=== PATIENT | female | born 1935 | race Caucasian/White ===

== ENCOUNTER → 2016-07-08 | Outpatient (CLI) | payer OTHER, MEDICARE ==
--- NOTE | 2016-07-08 09:00 | DX ---
Chest, Two Views at 735 hours History: Shortness of breath. Comparison: October 20, 2006 Findings: Cardiac silhouette is within normal range. Atherosclerotic tortuous aorta. No pneumonia, co ngestive heart failure, pleural effusion, or pneumothorax. Impression: No acute pulmonary disease.
== END ==
LOC: FIMAGING 07:18 → EDSTATUS 11:35
PROVIDERS: ATTEND Internal Medicine
DX: R06.02 Shortness of breath (principal); E78.5 Hyperlipidemia, unspecified; R63.5 Abnormal weight gain

== ENCOUNTER → 2016-08-13 | Outpatient (CLI) | payer OTHER, MEDICARE | LOC: BHFA 09:15 | PROVIDERS: ATTEND Internal Medicine Cardiovascular Disease | DX: R06.02 Shortness of breath (principal); R00.0 Tachycardia, unspecified; E78.5 Hyperlipidemia, unspecified ==

== ENCOUNTER → 2016-08-20 | Outpatient (CLI) | payer OTHER, MEDICARE | LOC: BHFA 08:30 | PROVIDERS: ATTEND Internal Medicine Cardiovascular Disease | DX: R00.2 Palpitations (principal); R06.02 Shortness of breath | CPT/HCPCS: 78452; 93017; 93306; A9500; J2785 ==

== ENCOUNTER → 2016-08-29 | Outpatient (CLI) | payer OTHER, MEDICARE | LOC: BHFA 09:00 | PROVIDERS: ATTEND Internal Medicine Cardiovascular Disease | DX: I47.1 Supraventricular tachycardia (principal); E78.5 Hyperlipidemia, unspecified ==

== ENCOUNTER → 2017-10-14 | Outpatient (CLI) | payer OTHER, MEDICARE | LOC: BMCIMAGING 08:35 | PROVIDERS: ATTEND Physician Assistant | DX: M25.862 Other specified joint disorders, left knee (principal) ==

== ENCOUNTER → 2017-11-17 | Outpatient (CLI) | payer OTHER, MEDICARE | LOC: FIMAGING 11:02 | PROVIDERS: ATTEND Physician Assistant | DX: S83.232A Complex tear of medial meniscus, current injury, left knee, initial encounter (principal); M24.10 Other articular cartilage disorders, unspecified site; M25.462 Effusion, left knee; M25.562 Pain in left knee ==

== ENCOUNTER → 2017-11-26 | Outpatient (CLI) | payer OTHER, MEDICARE | LOC: BHFA 10:45 | PROVIDERS: ATTEND Physician Assistant | DX: I25.10 Atherosclerotic heart disease of native coronary artery without angina pectoris (principal) ==

== ENCOUNTER 2017-12-15 06:36 | Day surgery (SDC) | payer OTHER, MEDICARE ==
[2017-12-15] MEDS ORDERED: ceFAZolin 2 GM/SWFI 2 GM/20 ML SYR IVP ONE (07:04)
[2017-12-15] MEDS ORDERED: LR 1,000 ML IV SCH (07:04)
[2017-12-15] MEDS ORDERED: LIDOCAINE 1% 2 ML INJ ID PRN (07:05)
[2017-12-15] MEDS ORDERED: ceFAZolin 2 GM/DEXTROSE 100 ML IV ONE (07:15)
--- NOTE | 2017-12-15 07:51 | PDHPUP ---
History & Physical Update H&P update statement: This history and physical update is based on an assessment of the patient which was completed after admission or registration (within 24 hours), but prior to the surgery/procedure. H&P update: no change in patient's condition since H&P completed
[2017-12-15] MEDS ORDERED: EPINEPHrine 1 MG/ML INJ ONE (08:09)
[2017-12-15] MEDS ORDERED: BUPIVACAINE/EPI 0.5% 30 ML SDV ONE (08:09)
[2017-12-15] MEDS ORDERED: fentaNYL 100 MCG/2 ML INJ ONE ×2 (09:04→10:09)
[2017-12-15] MEDS ORDERED: PROPOFOL 200 MG/20 ML VIAL ONE ×2 (09:05→09:40)
--- NOTE | 2017-12-15 09:05 | PDANEPAE ---
ANE Past Medical History - Cardiovascular History Hx Arrhythmias: Yes Hx Coronary Artery / Peripheral Vascular Disease: Yes Cardiovascular History Comment: HYPERLIPIDEMIA. SVT - NO SXS X 4 MOS. AIVR. DVT FOLLOWING ANKLE INJURY 4 YRS AGO - Pulmonary History Hx COPD: No Hx Asthma/Reactive Airway Disease: No Hx Recent Upper Respiratory Infection: No Hx Oxygen in Use at Home: No Hx Sleep Apnea: No Sleep Apnea Screening Result - Last Documented: Negative - Neurologic History Hx Cerebrovascular Accident: No Hx Seizures: No Hx Dementia: No - Endocrine History Hx Diabetes: No - Renal History Hx Renal Disorders: No - Liver History Hx Hepatic Disorders: No - Neurological & Psychiatric Hx Hx Neurological and Psychiatric Disorders: No - Cancer History Hx Cancer: No - Congenital Disorder History Hx Congenital Disorders: No - GI History Hx Gastrointestinal Disorders: No Gastrointestinal History Comment: HIATAL HERNIA - Other Health History Other Health History: NEG - Chronic Pain History Chronic Pain: Yes (KNEE L) - Surgical History Prior Surgeries: OOPHERECTOMY. CATARACTS ANE Review of Systems Review of Systems: - Exercise capacity METS (RN): 4 METS ANE Patient History - Allergies Allergies/Adverse Reactions: No Known Drug Allergies Allergy (Verified 12/09/17 12:03) - Home Medications Home Medications: Herbals/Supplements -Info Only 12/11/17 [Last Taken 12/10/17] Metoprolol Succinate 12/11/17 [Last Taken 12/15/17] - NPO status NPO Since - Liquids (Date): 12/15/17 NPO Since - Liquids (Time): 05:00 NPO Since - Solids (Date): 12/14/17 NPO Since - Solids (Time): 19:30 - Smoking Hx Smoking Status: Never smoked ANE Labs/Vital Signs - Vital Signs Blood Pressure: 144/68 Heart Rate: 76 Respiratory Rate: 14 O2 Sat (%): 97 Height: 168.91 cm Weight: 73.482 kg ANE Physical Exam - Airway Neck exam: FROM Mallampati Score: Class 2 Mouth exam: normal dental/mouth exam - Pulmonary Pulmonary: no respiratory distress, no rales or rhonchi, clear to auscultation - Cardiovascular Cardiovascular: regular rate and rhythym, no murmur, rub, or gallop - ASA Status ASA Status: III ANE Anesthesia Plan Anesthesia Plan: MAC
[2017-12-15] MEDS ORDERED: LIDOCAINE 2% 5 ML SDV ONE (09:09)
[2017-12-15] MEDS ORDERED: RANITIDINE 50 MG/2 ML VIAL ONE (09:28)
[2017-12-15] MEDS ORDERED: ONDANSETRON 4 MG/2 ML VIAL ONE (09:28)
[2017-12-15] MEDS ORDERED: ONDANSETRON 4 MG/2 ML VIAL IVP PRN (09:29)
[2017-12-15] MEDS ORDERED: ACETAMINOPHEN 500 MG TAB PO PRN (09:29)
[2017-12-15] MEDS ORDERED: HYDROCODONE/APAP 5/325 TAB PO PRN (09:29)
[2017-12-15] MEDS ORDERED: ALBUTEROL 3 ML DEYVIAL IH PRN (09:29)
[2017-12-15] MEDS ORDERED: NALOXONE HCL 0.4 MG/ML INJ IVP PRN (09:29)
[2017-12-15] MEDS ORDERED: LR 500 ML IV PRN (09:29)
[2017-12-15] MEDS: fentaNYL 100 MCG/2 ML INJ IVP PRN ×2 (10:10→10:15)
--- NOTE | 2017-12-15 10:54 | POSTANESTH ---
Post Anesthetic Evaluation Cardiovascular Status: Normal, Stable, Similar to Pre-Op Cond Respiratory Status: Normal, Stable, Similar to Pre-op Cond. Level of Consciousness/Mental Status: Mildly Sleepy, Arousable Pain Control: Adequate, Prn Tx Ordered Nausea/Vomiting Control: Adequate, Prn Tx Ordered Complications Possibly Related to Anesthesia: None Noted
[2017-12-15 11:52] VITALS: BP 121/73
--- NOTE | 2017-12-16 15:18 | GOP ---
[f rep st] OPERATIVE REPORT DATE OF OPERATION: 12/15/2017 SURGEON: Philippe Rivera MD NIB INSPECTOR: None. PREOPERATIVE DIAGNOSIS: Left knee medial and lateral meniscus tears. POSTOPERATIVE DIAGNOSIS: PROCEDURE PERFORMED: Left knee arthroscopy, partial medial and partial lateral meniscectomies. FINDINGS: SPECIMENS: None. INDICATIONS: The patient is an 82-year-old woman with persistent catching pain and discomfort across her left knee. Clinical and radiographic features are consistent with meniscus damage as above. I have recommended operative intervention for partial medial and partial lateral meniscectomies and mil d chondroplasty. DESCRIPTION OF PROCEDURE: The patient was identified in the preanesthesia area. The left knee clear ly demarcated as the operative site with indelible marker. She was given 2 g of Ancef intravenously en route to the operative suite. In the OR, general endotracheal anesthesia was administered. Atten tion was turned to the left knee, which was sterilely prepped and draped in usual fashion. Appropria te time-out procedure was carried out. The limb was sterilely prepped and draped. Arthroscopic portal sites were created across the superomedial, inferomedial, inferolateral aspect of the knee. Diagnostic arthroscopy ensued. The suprapatellar pouch was devoid of any loose or foreig n debris. The synovium was moderately inflamed. The articular surface of the patella and trochlea d emonstrated grade 2 chondromalacia and gentle debridement was carried out. Medial lateral gutters we re free of any loose or foreign debris. The medial compartment was entered. There was a complex tear through the middle and posterior third with displacement of the fragment into the lateral recess. This was debrided with arthroscopic shave r and trimmed to a stable margin. Approximately 40% of the middle third of the meniscus was withdraw n and 30% of the posterior third. The intercondylar notch was entered. The ACL was stable, intact t o gentle probing. The lateral compartment demonstrated a radial tear and degenerative horizontal tear through the inner margin. This was debrided with arthroscopic shaver. Approximately 20% to 30% of the inner to outer diameter was withdrawn through the middle third to posterior third junction. The articular surfaces were gently debrided with arthroscopic shaver to a clean and stable edge. All loose particulate christopher ris was evacuated. The arthroscopic equipment was withdrawn and the portal sites closed using 4-0 nylon suture. The kne e instilled with 20 cc of 0.5% Marcaine with epinephrine. A sterile dressing applied. The patient w as awakened, extubated, and taken to recovery room in good stable condition. PREOPERATIVE DIAGNOSIS: Left knee medial and lateral meniscus tears. TOTAL TOURNIQUET TIME: None. COMPLICATIONS: None. DISPOSITION: To recovery room, then home. /[id number]/MODL
== END 2017-12-15 11:54 | disposition home or self-care (01) ==
LOC: FSGY 06:36
PROVIDERS: ATTEND Orthopaedic Surgery
PROC: 0SBD4ZZ Excision of Left Knee Joint, Percutaneous Endoscopic Approach (ICD-10-PCS; principal; 2017-12-15 08:30)
DX: M23.222 Derangement of posterior horn of medial meniscus due to old tear or injury, left knee (principal); M23.362 Other meniscus derangements, other lateral meniscus, left knee; E78.5 Hyperlipidemia, unspecified; I47.1 Supraventricular tachycardia; Z86.718 Personal history of other venous thrombosis and embolism; K44.9 Diaphragmatic hernia without obstruction or gangrene
CPT/HCPCS: J0171; J0690; J2405; J2704; J2780; J3010

== ENCOUNTER → 2018-04-17 | Outpatient (CLI) | payer OTHER, MEDICARE | LOC: FIMAGING 08:06 | PROVIDERS: ATTEND Physician Assistant | DX: M23.021 Cystic meniscus, posterior horn of medial meniscus, right knee (principal); M23.041 Cystic meniscus, anterior horn of lateral meniscus, right knee; M25.461 Effusion, right knee ==

== ENCOUNTER 2018-04-26 11:55 | Day surgery (SDC) | payer OTHER, MEDICARE ==
[2018-04-26] MEDS ORDERED: LR 1,000 ML IV SCH (12:10)
[2018-04-26] MEDS ORDERED: ceFAZolin 2 GM/DEXTROSE 100 ML IV ONE (12:10)
[2018-04-26] MEDS ORDERED: LR 1,000 ML IV ONE (12:12)
[2018-04-26] MEDS ORDERED: LIDOCAINE 1% 2 ML INJ ID PRN (12:12)
[2018-04-26] MEDS ORDERED: BUPIVACAINE/EPI 0.5% 30 ML SDV ONE (14:18)
[2018-04-26] MEDS ORDERED: EPINEPHrine 1 MG/ML INJ ONE (14:18)
[2018-04-26] MEDS ORDERED: ONDANSETRON 4 MG/2 ML VIAL ONE (14:32)
[2018-04-26] MEDS ORDERED: PROPOFOL 200 MG/20 ML VIAL ONE (14:32)
[2018-04-26] MEDS ORDERED: fentaNYL 100 MCG/2 ML INJ ONE (14:32)
[2018-04-26] MEDS ORDERED: LIDOCAINE 2% 5 ML SDV ONE (14:32)
[2018-04-26] MEDS ORDERED: DEXAMETHASONE 4 MG/ML VIAL ONE (14:32)
[2018-04-26] MEDS ORDERED: KETOROLAC 30 MG/1 ML SDV ONE (14:32)
--- NOTE | 2018-04-26 15:16 | PDANEPAE ---
ANE History of Present Illness knee scope ANE Past Medical History - Cardiovascular History Hx Hypertension: No Hx Arrhythmias: Yes Hx Chest Pain: No Hx Coronary Artery / Peripheral Vascular Disease: No Hx CHF / Valvular Disease: No Hx Palpitations: No Cardiovascular History Comment: HYPERLIPIDEMIA. SVT - NO SXS X 4 MOS. AIVR. DVT FOLLOWING ANKLE INJURY 4 YRS AGO - Pulmonary History Hx COPD: No Hx Asthma/Reactive Airway Disease: No Hx Recent Upper Respiratory Infection: No Hx Oxygen in Use at Home: No Hx Sleep Apnea: No Sleep Apnea Screening Result - Last Documented: Negative - Neurologic History Hx Cerebrovascular Accident: No Hx Seizures: No Hx Dementia: No - Endocrine History Hx Diabetes: No - Renal History Hx Renal Disorders: No - Liver History Hx Hepatic Disorders: No - Neurological & Psychiatric Hx Hx Neurological and Psychiatric Disorders: No - Cancer History Hx Cancer: No - Congenital Disorder History Hx Congenital Disorders: No - GI History Hx Gastrointestinal Disorders: No Gastrointestinal History Comment: HIATAL HERNIA - Other Health History Other Health History: NEG - Chronic Pain History Chronic Pain: Yes (R KNEE) - Surgical History Prior Surgeries: OOPHERECTOMY. CATARACTS ANE Review of Systems Review of Systems: - Exercise capacity METS (RN): 4 METS ANE Patient History - Allergies Allergies/Adverse Reactions: No Known Drug Allergies Allergy (Verified 12/09/17 12:03) - Home Medications Home Medications: Herbals/Supplements -Info Only 12/11/17 [Last Taken 03/26/18] Metoprolol Succinate 12/11/17 [Last Taken 04/25/18 16:30] - NPO status NPO Status: no food or drink >8 hours NPO Since - Liquids (Date): 04/25/18 NPO Since - Liquids (Time): 08:30 NPO Since - Solids (Date): 04/25/18 NPO Since - Solids (Time): 18:30 - Anes Hx Anes Hx: no prior problems - Smoking Hx Smoking Status: Never smoked ANE Labs/Vital Signs - Vital Signs Blood Pressure: 149/75 Heart Rate: 44 Respiratory Rate: 16 O2 Sat (%): 96 Height: 168.91 cm Weight: 73.936 kg ANE Physical Exam - Airway Mallampati Score: Class 2 - Pulmonary Pulmonary: no respiratory distress - Cardiovascular Cardiovascular: regular rate and rhythym - ASA Status ASA Status: II ANE Anesthesia Plan Anesthesia Plan: GA w LMA
[2018-04-26] MEDS ORDERED: fentaNYL 100 MCG/2 ML INJ IVP PRN (15:29)
[2018-04-26] MEDS ORDERED: ALBUTEROL 3 ML DEYVIAL IH PRN (15:29)
[2018-04-26] MEDS ORDERED: LR 500 ML IV PRN (15:29)
[2018-04-26] MEDS ORDERED: NALOXONE HCL 0.4 MG/ML INJ IVP PRN (15:29)
[2018-04-26] MEDS ORDERED: ONDANSETRON 4 MG/2 ML VIAL IVP PRN (15:29)
--- NOTE | 2018-04-26 15:52 | POSTANESTH ---
Post Anesthetic Evaluation Cardiovascular Status: Normal, Stable Respiratory Status: Normal, Stable Level of Consciousness/Mental Status: Can Participate in Eval Pain Control: Adequate, Prn Tx Ordered Nausea/Vomiting Control: Adequate, Prn Tx Ordered Complications Possibly Related to Anesthesia: None Noted
--- NOTE | 2018-04-26 15:57 | POSTOPPROG ---
Post Op Note Date of Operation: 04/26/18 Surgeon: Philippe Rivera Desk Assistant: none Anesthesiologist: puar Anesthesia: GET(General Endotracheal) Pre-op Diagnosis: med lat meniscus tears right knee Post-op Diagnosis: same Indication: same Procedure: partial med lat menisectomy right knee Inf/Abcess present in the surg proc area at time of surgery?: No Depth: Deep Incisional (Fascial) EBL: Minimal
[2018-04-26 17:15] VITALS: BP 127/58
--- NOTE | 2018-04-28 23:06 | CPEKG ---
Test Reason : OPEN Blood Pressure : / mmHG Vent. Rate : 104 BPM Atrial Rate : 041 BPM P-R Int : 182 ms QRS Dur : 080 ms QT Int : 398 ms P-R-T Axes : 076 022 065 degrees QTc Int : 524 ms Sinus tachycardia Ventricular bigeminy Probable left atrial enlargement Confirmed by Edy Alcazar ([id number]) on 04/28/2018 11:06:01 PM Referred By: Confirmed By:Edy Alcazar
--- NOTE | 2018-05-02 13:21 | GOP ---
DATE OF OPERATION: 04/26/2018 SURGEON: Philippe Rivera MD MH TEACHER: Dom Conn, rn medical surgical who was a medical necessity for the entirety of the case. PREOPERATIVE DIAGNOSIS: Right knee medial and lateral meniscus tears, as well as chondromalacia. POSTOPERATIVE DIAGNOSIS: Right knee medial and lateral meniscus tears, as well as chondromalacia. PROCEDURE PERFORMED: Right knee arthroscopy with partial medial, partial lateral meniscectomy, media l femoral chondroplasty. FINDINGS: INDICATIONS: This is an 83-year-old woman with moderate arthritic change. She has focal mechanical symptoms given a large tear through her medial meniscus and medial femoral condylar defect. She has undergone previous left knee arthroscopy for similar findings and has done very well. I, therefore, recommended a right knee arthroscopy. She understood the risks, benefits, alternatives, and wished t o proceed. Written consent was signed and placed in patient's chart. DESCRIPTION OF PROCEDURE: The patient was identified in the preanesthesia area. The right knee tanvir rly demarcated as operative site with an indelible marker. She was taken to the operating room. Gen eral endotracheal anesthesia was administered. Attention was turned to the right knee, which was dedra rilely prepped and draped in usual fashion. Appropriate time-out procedure was carried out. Standard arthroscopic portal sites were created. Diagnostic arthroscopy ensued. The suprapatellar p ouch was devoid of any loose or foreign debris. The synovium was moderately inflamed and the articul ar surface of the femur in the trochlea and the patella in the 1 and 2 softening only. The medial ad lateral gutters were free of any loose or foreign debris. The medial compartment was entered. There was a grade III condylar defect that was irregular approxi mately 1.5 cm to 2 cm, the margins of which were debrided with abrasion chondroplasty to avoid catchi ng and/or prominence. The tibia demonstrated grade 1 softening. There was any gross macerated tear of the medial meniscus with extrusion of the medial fragment into an intra-articular position. This was debrided to a clean and stable edge. Approximately 50% of the middle and posterior thirds were d ebrided. The intercondylar notch was entered. The ACL was stable, intact to gentle probing. The lateral comp artment was entered. The articular surface of the femur and tibia demonstrated grade I articular car tilage wear. The lateral meniscus was frayed and had a degenerative tear through the midportion. Th is was debrided with the arthroscopic shaver, approximately 30% of the inner outer diameter was debri ded in this area. The arthroscopic equipment was withdrawn. The portal sites closed using 4-0 nylon suture. The knee instilled with 20 cc of 0.5% Marcaine with epinephrine. A sterile dressing was applied. The patient was awakened, extubated, and taken to recovery room in good, stable condition. /[id number]/MODL
== END 2018-04-26 17:37 | disposition home or self-care (01) ==
LOC: FSGY 11:55
PROVIDERS: ATTEND Orthopaedic Surgery
PROC: 0SBC4ZZ Excision of Right Knee Joint, Percutaneous Endoscopic Approach (ICD-10-PCS; principal; 2018-04-26 14:45)
DX: S83.241A Other tear of medial meniscus, current injury, right knee, initial encounter (principal); M23.261 Derangement of other lateral meniscus due to old tear or injury, right knee
CPT/HCPCS: J0171; J0690; J1100; J1885; J2405; J2704; J3010

== ENCOUNTER → 2018-07-19 | Outpatient (CLI) | payer OTHER, MEDICARE | LOC: FIMAGING 07:33 | PROVIDERS: ATTEND Neurological Surgery | DX: M51.36 Other intervertebral disc degeneration, lumbar region (principal); M41.86 Other forms of scoliosis, lumbar region; M53.3 Sacrococcygeal disorders, not elsewhere classified ==

== ENCOUNTER → 2018-07-26 | Outpatient (CLI) | payer OTHER, MEDICARE ==
[~2018-07-26] MED LIST: GADOBUTROL 10 ML VIAL IVP ONE
== END ==
LOC: FIMAGING 06:22
PROVIDERS: ATTEND Neurological Surgery
DX: M48.061 Spinal stenosis, lumbar region without neurogenic claudication (principal); M51.36 Other intervertebral disc degeneration, lumbar region; M46.96 Unspecified inflammatory spondylopathy, lumbar region; M51.24 Other intervertebral disc displacement, thoracic region
CPT/HCPCS: 72158; A9585; 82565-PO

== ENCOUNTER 2018-08-04 07:30 | Observation (INO) | payer OTHER, MEDICARE ==
--- NOTE | 2018-08-04 06:22 | PDHPUP ---
History & Physical Update H&P update statement: This history and physical update is based on an assessment of the patient which was completed after admission or registration (within 24 hours), but prior to the surgery/procedure. H&P update: H&P reviewed & patient examined, no change in patient's condition since H&P completed
[2018-08-04] MEDS ORDERED: EPINEPHrine 1 MG/ML INJ ONE (07:40)
[2018-08-04] MEDS ORDERED: BUPIVACAINE 0.25% 30 ML SDV ONE (07:40)
[2018-08-04] MEDS ORDERED: THROMBIN (BOVINE) 5,000 UNIT VIAL TP ONE (07:40)
[2018-08-04] MEDS ORDERED: DEPO METHYLPREDNISOLONE 40 MG/ML SDV ONE (07:40)
[2018-08-04] MEDS ORDERED: CHLORHEXIDINE GLUC HIBICLENS 118 ML BTL TP ONE (07:40)
[2018-08-04] MEDS ORDERED: BACITRACIN 50,000 UNITS/10 ML SYR IRR ONE (07:41)
[2018-08-04] MEDS ORDERED: LR 1,000 ML IV ONE (07:48)
[2018-08-04] MEDS ORDERED: ACETAMINOPHEN 500 MG TAB PO ONE (07:48)
[2018-08-04] MEDS ORDERED: ceFAZolin 2 GM/DEXTROSE 100 ML IV ONE (07:48)
[2018-08-04] MEDS ORDERED: GABAPENTIN 300 MG CAP PO ONE (07:48)
--- NOTE | 2018-08-04 08:45 | PDANEPAE ---
ANE History of Present Illness 83 yo female with severe L leg pain for L4/5 laminectomy. ANE Past Medical History - Cardiovascular History Hx Hypertension: No Hx Arrhythmias: Yes Hx Chest Pain: No Hx Coronary Artery / Peripheral Vascular Disease: No Hx CHF / Valvular Disease: No Hx Palpitations: No Cardiovascular History Comment: HYPERLIPIDEMIA. SVT - NO SXS X 4 MOS. AIVR. DVT FOLLOWING ANKLE INJURY 4 YRS AGO - Pulmonary History Hx COPD: No Hx Asthma/Reactive Airway Disease: No Hx Recent Upper Respiratory Infection: No Hx Oxygen in Use at Home: No Hx Sleep Apnea: No Sleep Apnea Screening Result - Last Documented: Negative - Neurologic History Hx Cerebrovascular Accident: No Hx Seizures: No Hx Dementia: No - Endocrine History Hx Diabetes: No Hypothyroid: No Hyperthyroid: No Obesity: no - Renal History Hx Renal Disorders: No - Liver History Hx Hepatic Disorders: No - Neurological & Psychiatric Hx Hx Neurological and Psychiatric Disorders: No Neurological / Psychiatric History Comment: n/t to legs,aching - Cancer History Hx Cancer: No - Congenital Disorder History Hx Congenital Disorders: No - GI History Hx Gastrointestinal Disorders: No Gastrointestinal History Comment: HIATAL HERNIA - Other Health History Other Health History: NEG - Chronic Pain History Chronic Pain: Yes (R KNEE) - Surgical History Prior Surgeries: OOPHERECTOMY. CATARACTS ANE Review of Systems Review of Systems: - Exercise capacity METS (RN): 4 METS ANE Patient History - Allergies Allergies/Adverse Reactions: No Known Drug Allergies Allergy (Verified 07/29/18 11:24) - Home Medications Home Medications: Metoprolol Tartrate 07/29/18 [Last Taken 08/03/18] - NPO status NPO Since - Liquids (Date): 08/04/18 NPO Since - Liquids (Time): 05:00 NPO Since - Solids (Date): 08/03/18 NPO Since - Solids (Time): 21:00 - Smoking Hx Smoking Status: Never smoked - Family Anes Hx Family Hx Anesthesia Complications: none ANE Labs/Vital Signs - Vital Signs Blood Pressure: 136/62 Heart Rate: 88 Respiratory Rate: 20 O2 Sat (%): 95 Height: 170.18 cm Weight: 70.76 kg ANE Physical Exam - ASA Status ASA Status: II ANE Anesthesia Plan Anesthesia Plan: general endotracheal anesthesia
[2018-08-04] MEDS ORDERED: MAGNESIUM HYDROXIDE 30 ML UDCUP PO PRN (09:53)
[2018-08-04] MEDS ORDERED: METHOCARBAMOL 750 MG TAB PO PRN (09:53)
[2018-08-04] MEDS ORDERED: HYDROmorphONE/DILAUDID 1 MG/ML INJ IVP PRN (09:53)
[2018-08-04] MEDS ORDERED: POLYETHYLENE GLYCOL 3350 17 GM PKT PO PRN (09:53)
[2018-08-04] MEDS ORDERED: BISACODYL 10 MG SUPP PR PRN (09:53)
[2018-08-04] MEDS ORDERED: LACTULOSE 20 GM/30 ML UDCUP PO PRN (09:53)
[2018-08-04] MEDS ORDERED: diphenhydrAMINE 25 MG CAP PO PRN (09:53)
[2018-08-04] MEDS ORDERED: ONDANSETRON DISINTEGRATING 4 MG TAB PO PRN (09:53)
[2018-08-04] MEDS ORDERED: oxyCODONE IR 5 MG TAB PO PRN (09:53)
[2018-08-04] MEDS ORDERED: ONDANSETRON 4 MG/2 ML VIAL IVP PRN (09:53)
[2018-08-04] MEDS ORDERED: NS 1,000 ML IV SCH (10:00)
--- NOTE | 2018-08-04 10:34 | PDANEPAE ---
ANE History of Present Illness here for chronic knee and back pain, lumbar lami scheduled L4-L5 ANE Past Medical History - Cardiovascular History Hx Hypertension: No Hx Arrhythmias: Yes Hx Chest Pain: No Hx Coronary Artery / Peripheral Vascular Disease: No Hx CHF / Valvular Disease: No Hx Palpitations: No Cardiovascular History Comment: HYPERLIPIDEMIA. SVT - NO SXS X 4 MOS. AIVR ( accelerated idioventricular rhythm). DVT FOLLOWING ANKLE INJURY 4 YRS AGO - Pulmonary History Hx COPD: No Hx Asthma/Reactive Airway Disease: No Hx Recent Upper Respiratory Infection: No Hx Oxygen in Use at Home: No Hx Sleep Apnea: No Sleep Apnea Screening Result - Last Documented: Negative - Neurologic History Hx Cerebrovascular Accident: No Hx Seizures: No Hx Dementia: No - Endocrine History Hx Diabetes: No Hypothyroid: No Hyperthyroid: No Obesity: no - Renal History Hx Renal Disorders: No - Liver History Hx Hepatic Disorders: No - Neurological & Psychiatric Hx Hx Neurological and Psychiatric Disorders: No Neurological / Psychiatric History Comment: n/t to legs,aching - Cancer History Hx Cancer: No - Congenital Disorder History Hx Congenital Disorders: No - GI History Hx Gastrointestinal Disorders: No Gastrointestinal History Comment: HIATAL HERNIA - Other Health History Other Health History: NEG - Chronic Pain History Chronic Pain: Yes (R KNEE) - Surgical History Prior Surgeries: OOPHERECTOMY. CATARACTS ANE Review of Systems Review of Systems: - Exercise capacity METS (RN): 4 METS ANE Patient History - Allergies Allergies/Adverse Reactions: No Known Drug Allergies Allergy (Verified 07/29/18 11:24) - Home Medications Home Medications: Metoprolol Tartrate 07/29/18 [Last Taken 08/03/18] - NPO status NPO Since - Liquids (Date): 08/04/18 NPO Since - Liquids (Time): 05:00 NPO Since - Solids (Date): 08/03/18 NPO Since - Solids (Time): 21:00 - Smoking Hx Smoking Status: Never smoked - Family Anes Hx Family Hx Anesthesia Complications: none ANE Labs/Vital Signs - Vital Signs Blood Pressure: 136/62 Heart Rate: 88 Respiratory Rate: 20 O2 Sat (%): 95 Height: 170.18 cm Weight: 70.76 kg ANE Physical Exam - Airway Neck exam: FROM Mallampati Score: Class 2 Mouth exam: normal dental/mouth exam - Pulmonary Pulmonary: no respiratory distress, no rales or rhonchi - Cardiovascular Cardiovascular: regular rate and rhythym, no murmur, rub, or gallop - ASA Status ASA Status: II ANE Anesthesia Plan Anesthesia Plan: general endotracheal anesthesia
[2018-08-04] MEDS ORDERED: PROPOFOL/EMULSION 500 MG/50 ML BOTTLE IV ONE (10:38)
[2018-08-04] MEDS ORDERED: REMIFENTANIL HCL 1 MG VIAL ONE (10:38)
[2018-08-04] MEDS ORDERED: PROPOFOL 200 MG/20 ML VIAL ONE ×2 (10:38→11:50)
[2018-08-04] MEDS ORDERED: ROCURONIUM 50 MG/5 ML VIAL ONE (10:38)
[2018-08-04] MEDS ORDERED: LIDOCAINE 2% 100 MG/5 ML SYR ONE (10:38)
[2018-08-04] MEDS ORDERED: DEXAMETHASONE 4 MG/ML VIAL ONE ×2 (11:00→11:04)
[2018-08-04] MEDS ORDERED: PHENYLEPHRINE 10 MG/ML SDV ONE ×2 (11:10)
[2018-08-04] MEDS ORDERED: ONDANSETRON 4 MG/2 ML VIAL ONE (12:11)
[2018-08-04] MEDS ORDERED: HYDROmorphONE/DILAUDID 2 MG/ML INJ ONE (12:32)
[2018-08-04] MEDS ORDERED: HYDROmorphONE/DILAUDID 2 MG/ML INJ IVP PRN (12:47)
[2018-08-04] MEDS ORDERED: LR 500 ML IV PRN (12:47)
[2018-08-04] MEDS ORDERED: DIAZEPAM 5 MG/ML 1 ML SYR IVP PRN (12:47)
[2018-08-04] MEDS ORDERED: NALOXONE HCL 0.4 MG/ML INJ IVP PRN (12:47)
[2018-08-04] MEDS ORDERED: MEPERIDINE 25 MG/0.5 ML AMP IVP PRN (12:47)
[2018-08-04] MEDS ORDERED: fentaNYL 100 MCG/2 ML INJ IVP PRN (12:47)
--- NOTE | 2018-08-04 12:48 | POSTANESTH ---
Post Anesthetic Evaluation Cardiovascular Status: Normal, Stable Respiratory Status: Normal, Stable Level of Consciousness/Mental Status: Can Participate in Eval, Mildly Sleepy, Arousable Pain Control: Adequate, Prn Tx Ordered Nausea/Vomiting Control: Adequate, Prn Tx Ordered Complications Possibly Related to Anesthesia: None Noted
--- NOTE | 2018-08-04 13:03 | POSTOPPROG ---
Post Op Note Date of Operation: 08/04/18 Surgeon: Sarah Rehman Network Operations Lead: BERNY Ojeda Anesthesiologist: DO Akosua Anesthesia: GET(General Endotracheal), Local (Specify) Pre-op Diagnosis: L4/5 stenosis Post-op Diagnosis: L4/5 stenosis Indication: LE pain Procedure: L4/5 laminectomy Findings: see op report Inf/Abcess present in the surg proc area at time of surgery?: No Depth: Deep Incisional (Fascial) EBL: 50-100 Total fluids administered: see anesthesia record Complications: none
--- NOTE | 2018-08-04 13:05 | SOAPPROG ---
SOAP Progress Note Assessment/Plan: Post Op Visit: S: Awake and alert. NAD. Pt with lower back pain O: AFVSS/PERRLA/EOMI no droop CN 2-12 grossly intact +lt touch 5/5 BUE/BLE = CDI A/P 83 yo female that is s/p L4/5 laminectomy -orders in place -call with any questions or concerns -PT/OT in am -take medications as directed -no bending or twisting Objective: Vital Signs Temp Pulse Resp BP Pulse Ox 36.0 C 71 16 118/55 L 99 08/04/18 12:45 08/04/18 12:45 08/04/18 12:45 08/04/18 12:47 08/04/18 12:47 08/03/18 08/04/18 08/05/18 05:59 05:59 05:59 Intake Total 600 Output Total 10 Balance 590 ICD10 Worksheet Patient Problems: Problems Problem Status Onset Lumbar radicular pain Acute Lumbar stenosis Acute - ICD10 Problem Qualifiers (1) Lumbar stenosis (2) Lumbar radicular pain
[2018-08-04] MEDS ORDERED: fentaNYL 100 MCG/2 ML INJ ONE (13:21)
--- NOTE | 2018-08-04 13:30 | GOP ---
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 PROCEDURE PERFORMED: L4-5 laminectomy with bilateral decompressions and bilateral recess decompressi ons ([id number]), microscope. FINDINGS: ESTIMATED BLOOD LOSS: 25 cc. INDICATIONS: The patient is an 83-year-old who had severe bilateral lumbosacral radiculopathy, neuro genic claudication, critical stenosis at L4-5. There was significant stenosis at L3-4 as well, but I did not think this is causing any of her symptoms, and I suggested a single-level lumbar laminectomy at L4, 5. The risks of nerve injury, spinal fluid leak, continued symptoms was discussed. She knew that there was a chance of infection and also a possibility that she would fail to improve from the surgery, but I thought there was a high probability of success. She did want to proceed. DESCRIPTION OF PROCEDURE: The patient was taken to the operating room, placed in a supine position. General anesthesia was begun. She was flipped prone onto the Eduardo frame. Care was taken to pad a ll points of contact. Her back was sterilely prepped and draped in usual sterile surgical fashion. A localizing x-ray was taken. A midline incision was made about 2 inches in length. The subcutaneous tissue was dissected using Raffy vie cautery down to the fascia and a subperiosteal dissection was made down the L4-5 lamina. Self-re taining retractor was placed. We removed the inferior spinous process of L4, the rostral part of the spinous process of L5. We then drilled bilateral laminectomies of L4, preserving the rostral arch o f L4, and then, we thinned down the rostral arch of L5. We then, under the operating microscope, ope karina the ligamentum flavum and decompressed from the mid pedicle of L5 to the inferior pedicle of L4. There was a very severe spinal stenosis. Her dura was very patulous. It was exuberant dura and ten ded to bulge through the lamina defect and is quite thin. There was no violation of the dura whatsoe henna. We decompressed from pedicle to pedicle at L5 and worked our way up along the L5 nerve root to the L4 pedicle and got great lateral recess decompressions. The right side was worse than the left a nd the right lateral recess was deeper than left lateral recess, but I was very happy with our decomp ression. We irrigated with antibiotic saline solution. Closed incision in multiple layers using Vicryl suture s. Steri-Strips were applied to the skin. The patient was reversed from anesthesia, extubated, and transferred to recovery room in stable condition. There were no complications. COMPLICATIONS: None. /[id number]/MODL
[2018-08-04] MEDS: ACETAMINOPHEN 500 MG TAB PO SCH ×2 (14:41→22:20)
[2018-08-04] MEDS: ceFAZolin 2 GM/DEXTROSE 100 ML IV SCH (16:34)
[2018-08-04] MEDS: FAMOTIDINE 20 MG TAB PO SCH (22:20)
[2018-08-04] MEDS: SENNOSIDES/DOCUSATE SODIUM TAB PO SCH (22:20)
[2018-08-05] MEDS: ceFAZolin 2 GM/DEXTROSE 100 ML IV SCH (00:51)
[2018-08-05] MEDS: ACETAMINOPHEN 500 MG TAB PO SCH (06:20)
[2018-08-05] MEDS: SENNOSIDES/DOCUSATE SODIUM TAB PO SCH (07:15)
[2018-08-05] MEDS: FAMOTIDINE 20 MG TAB PO SCH (07:16)
--- NOTE | 2018-08-05 07:31 | NEUSURGPN ---
Assessment/Plan: Assessment: 83 yo female that is s/p L4/5 laminectomy POD #1 Plan: -PT/OT this am -plan for dc later today -pt is doing well with minimal pain/complaints -orders in place -call with any questions or concerns -take medications as directed -no bending or twisting -pt seen by Dr Rehman -pt understands and agrees Subjective: Awake and alert. Pt with minimal lower back pain. No hdez/neck/chest/abd or gu complaints. No f/c/n/v/d. Objective: AFVSS/PERRLA/EOMI no droop CN 2-12 grossly intact +lt touch 5/5 BUE/BLE = CDI Neuro Check Frequency: per routine Urinary Catheter in Place: No - Physician Discussed Patient with : Ori Patient Seen by : Ori Neurosurgery Physical Exam - Vitals, I&O, Labs I and O 08/04/18 08/05/18 08/06/18 05:59 05:59 05:59 Intake Total 3770 Output Total 2310 Balance 1460 Weight 70.76 kg Intake: Oral (ml) 1640 IV Intake (ml) 600 IV Infused (ml) 1530 Ns 1,000 ml @ 75 mls/hr 1325 IV CONT ROSAMARIA Rx#: [id number] ceFAZolin 2 GM/DEXTROSE 205 100 ml @ 200 mls/hr IV Q8H ROSAMARIA Rx#:[id number] Output: Urine (ml) 2300 Bedside Commode 1300 Toilet 1000 Estimated Blood Loss (ml) 10 Other: Intake Quantity Yes Sufficient Number of Voids Bedside Commode 1 Toilet 1 Vital Signs Temp Pulse Resp BP Pulse Ox 36.6 C 61 16 120/60 95 08/05/18 07:14 08/05/18 07:14 08/05/18 07:14 08/05/18 07:14 08/05/18 07:14 ICD10 Worksheet Patient Problems: Problems Problem Status Onset Lumbar radicular pain Acute Lumbar stenosis Acute - ICD10 Problem Qualifiers (1) Lumbar stenosis (2) Lumbar radicular pain
[2018-08-05] MEDS ORDERED: ACETAMINOPHEN 325 MG TAB PO PRN (07:32)
[2018-08-05 08:51] LABS: PLATELET COUNT 184 10^3/uL (150-400)
--- NOTE | 2018-08-05 09:08 | GCON ---
[f rep st] CONSULTATION DATE OF CONSULTATION: 08/05/2018 REASON FOR CONSULTATION: I was asked to see this patient in regard to bradycardia noted this morning. HISTORY OF PRESENT ILLNESS: This is an 83-year-old relatively healthy female who is now postoperative day 1 status post L4-L5 laminectomy. Neurosurgery was planning on discharging her today; however, she was noted to be bradycardic. I spoke with her nurse Janny who notes this was noted when she was in bed this morning, completely lucid, somewhat asymptomatic. Her heart rate was 39 at the time. She said that she was not in pain at that time. She had no urge to have a bowel movement. No urge to urinate. She has never fainted in her life. She does not get any chest pain with ambulation nor shortness of breath. She occasionally gets some lower extremity edema in the summer. Her functional status has not changed. [place]. She has seen Cardiology in the past. 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 She also had an MPI that showed some inferoseptal ischemia. Angiogram was recommended at that time. However, she declined due to concern of stroke. She apparently had some bradycardia intraoperatively as well. She has never been told that she is bradycardic in the past. She was told to take metoprolol prior to her surgery. She did take 1 dose of 25 mg the night before her surgery. She is unclear if this was the immediate- release or long-acting release formulation. PAST MEDICAL/SURGICAL HISTORY: 1. Hyperlipidemia. 2. DVT in setting of a leg fracture. 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 4. Aortic insufficiency. 5. Coronary artery disease on a calcium score as well as seen on MPI. MEDICATIONS: Please see medication reconciliation. ALLERGIES: She has no known drug allergies. FAMILY HISTORY: Her mother unexpectedly suspected to be a stroke. SOCIAL HISTORY: She very rarely drinks alcohol. She does not smoke. REVIEW OF SYSTEMS: 10-point review of systems is conducted and is negative except per HPI. PHYSICAL EXAM: VITAL SIGNS: Blood pressure when I am seeing her is 112/57. There was no bradycardia noted in her chart. Her heart rate when I am seeing her is around 80, respiration rate 16, saturating 94% on 2 L. Temperature is 36.4. GENERAL: This patient is a very pleasant female who is resting comfortably. No acute distress. HEENT: Shows her to be normocephalic, atraumatic. CARDIOVASCULAR: Regular rate and rhythm. She has a 2/6 systolic murmur heard best at the left upper sternal border. She has no elevated JVD. She has trace bilateral lower extremity pitting edema. PULMONARY: Shows her lungs to be clear to auscultation bilaterally. She is in no respiratory distress. ABDOMEN: Soft, nontender, nondistended. SKIN: Shows no rash. : No [place]. NEUROLOGIC: Shows her to be alert and oriented x3. She has no focal deficits. PSYCHIATRIC: Shows normal mood and affect. LABORATORY: I have ordered labs for today. Review of recent labs shows an INR of 1.8 in 2013. Her recent CBC was normal. Kidney function checked in 2017 was normal. DATA: 1. I reviewed her old EKG from November of 2017. This shows sinus rhythm. Intervals are normal. She has 1 PVC. She has no ST changes. No T-wave inversions. Her rate on that was 71. Notably, she has normal P-R interval, normal QRS interval. 2. I reviewed her lumbar spine MRI from July. 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 IMPRESSION AND PLAN: This is an 83-year-old female postoperative day #1 for an L4-5 laminectomy for whom I am consulted for bradycardia. Bradycardia: Fortunately, she has no real cardiac symptoms, was asymptomatic with this, although she does have known coronary artery disease. She did take 1 dose of metoprolol on the evening of the , two days ago. Differential considerations include more malignant arrhythmias including higher degree heart blocks or sick sinus syndrome, though fortunately she has not had any syncope. Also would consider a lower degree heart block, possibly Wenckebach. I have ordered a set of labs including cardiac enzyme, EKG, echocardiogram, and telemetry monitoring. I will follow up on these studies and make further recommendations based on this. ADDENDUM: Data reviewed. EKG okay, echocardiogram okay, labs okay, telemetry with frequent PVCs but nothing malignant. I discussed the plan with her and Quyen Torres. Cardiology will mail her an event monitor for her to wear for 2 weeks. She will follow up with Quyen Torres shortly thereafter in clinic. She is okay for discharge from my perspective. /[id number]/MODL MTDScott
--- NOTE | 2018-08-05 12:30 | ECHO ---
[email or web address] [address] [address] Main: [phone] Fax: Transthoracic Echocardiogram Name: AVTAR PICHARDO MR#: [id number] Study Date: 08/05/2018 Study Time: 11:30 AM Date of : 1935 Age: 83 year(s) Height: 170.2 cm (67 in.) Weight: 70.76 kg (156 lb.) BSA: 1.82 m2 Gender: Female Examination: Echo Indication: bradycardia Image Quality: Adequate Contrast: Requested by: Kurt Douglas BP: 127 mmHg/62 mmHg Heart Rate: Rhythm: Indication: bradycardia Procedure Staff Environmental Services Associate: Pippa Zaragoza [facility] Reading Physician: Corbin Aguayo MD Requesting Provider: Conclusions: Normal global systolic LV function. EF is 72 %. Mild mitral valve regurgitation is present. Mild aortic valve regurgitation is present. Trivial to mild tricuspid valve regurgitation. Right ventricular systolic pressure measures 30mmHg. Measurements: Chambers Valvular Assessment AV/MV Valvular Assessment TV/PV Normal Normal Normal Name Value Range Name Value Range Name Value Range IVSd (2D): 1.0 cm (0.6 cm-1.1 AV Vmax: 1.85 m/s (1 m/s-1.7 TR Vmax: 2.50 mm/s ( - ) cm) m/s) TR PGmax: 25 mmHg ( - ) LVDd (2D): 4.0 cm (3.9 cm-5.3 AV maxP mmHg ( - ) syst. PAP: 30 mmHg ( - ) cm) LVOT Vmax: 1.74 m/s (0.7 m/s-1.1 PV Vmax: 0.91 m/s (0.6 m/s-0.9 LVDs (2D): 2.8 cm (2.1 cm-4 m/s) m/s) cm) AR (PHT): 606 ms ( - ) PV PGmax: 3 mmHg ( - ) LVPWd (2D): 0.8 cm ( - ) MV E Vmax: 0.80 m/s ( - ) LVEF (BP): 72 % (>=55 %) MV A Vmax: 0.80 m/s ( - ) RVDd(2D): 2.1 cm (1.9 cm-3.8 MV E/A: 1.00 ( - ) cmmm) Continued Measurements: Chambers Valvular Assessment AV/MV Valvular Assessment TV/PV Name Value Name Value Name Value LADs: 3.3 cm MV DecTime: 194 m/s CVP (est.): 5 mmHg LADs Lon.4 cm MV E/E' Septal: 12.20 LA Area: 20.0 cm2 MV E/E' Lateral: 11.50 LA Volume: 60 ml Patient: AVTAR PICHARDO Study Date: 08/05/2018 Page 1 of 2 11:30 AM LA Volume Index: 33.0 ml/m2 AR Vmax: 3.81 cm/s RA Area: 16.1 cm2 Additional Vessels Name Value Ao Ascendin.0 cm Findings: Left Ventricle: Normal size left ventricle. No LV hypertrophy. Normal global systolic LV function. EF is 72 %. No regional wall motion abnormality. Normal diastolic LV function. Right Ventricle: Normal size right ventricle. Normal RV function. Left Atrium: The left atirum is borderline dilated. Right Atrium: The right atrium is normal in size. Mitral Valve: There is mild thickening of the mitral valve leaflets. Mild mitral valve regurgitation is present. No mitral stenosis is present. Aortic Valve: The aortic valve is tri-leaflet. Aortic sclerosis is present. Mild aortic valve regurgitation is present. No aortic valve stenosis is present. Tricuspid Valve: The tricuspid valve is normal in appearance and function. Trivial to mild tricuspid valve regurgitation. Right ventricular systolic pressure measures 30mmHg. The pulmonary artery pressure is normal. Pulmonic Valve: Pulmonary valve not well visualized. Trivial pulmonic valve regurgitation. Aorta: The aorta is normal. Normal size aortic root measuring 3.4 cm. Normal size ascending aorta measuring 3.0 cm. IVC: Normal size and course of the IVC. Pericardium: Small pericardial effusion. There is pericardial fat. (No Signature Object) Patient: AVTAR PICHARDO Study Date: 08/05/2018 Page 2 of 2 11:30 AM [id number]
[2018-08-05 12:33] VITALS: BP 111/54
--- NOTE | 2018-08-05 14:59 | ASMTCMCOM ---
CM Note CM Note Notes: Pt had planned back surgery. Pt resides alone. OT/PT rec home. Hospitalist consulting due to cardiac concern. Anticipate pt will d/c when medically stable. No CM d/c needs identified. Date Signed: 08/05/2018 02:58 PM Electronically Signed By:SHOAIB Mojica
--- NOTE | 2018-08-05 20:01 | CPEKG ---
Test Reason : OPEN Blood Pressure : / mmHG Vent. Rate : 082 BPM Atrial Rate : 081 BPM P-R Int : 182 ms QRS Dur : 087 ms QT Int : 367 ms P-R-T Axes : 039 006 032 degrees QTc Int : 429 ms Sinus rhythm Probable left atrial enlargement Low voltage, precordial leads Confirmed by Lincoln Aldridge ([id number]) on 08/05/2018 8:00:32 PM Referred By: Sarah COPELAND Confirmed By:Lincoln Aldridge
[2018-08-07] MEDS ORDERED: ENOXAPARIN 40 MG/0.4 ML SYR SC SCH (09:00)
== END 2018-08-05 15:26 | disposition home or self-care (01) ==
LOC: F3N 07:30
PROVIDERS: ADMIT Neurological Surgery; ATTEND Neurological Surgery
DX: M48.062 Spinal stenosis, lumbar region with neurogenic claudication (principal)
CPT/HCPCS: 63005; 93005; 93306; 97116; 97161; 97165; J0171; J0690; J1100; J1170; J2001; J2370; J2405; J2704; J3010; J1030

== ENCOUNTER → 2018-09-22 | Outpatient (CLI) | payer OTHER, MEDICARE | LOC: BHFA 13:00 | PROVIDERS: ATTEND Internal Medicine Cardiovascular Disease | DX: I47.2 Ventricular tachycardia (principal) | CPT/HCPCS: 78452; 93017; A9500; J2785 ==

== ENCOUNTER → 2018-11-09 | Outpatient (CLI) | payer OTHER, MEDICARE | LOC: FIMAGING 06:11 ==